=== PATIENT | female | born 1990 | race Caucasian/White ===

== ENCOUNTER 2023-05-29 15:05 | Emergency (ER) | payer MEDICAID ==
[~2023-05-29] VITALS: Ht 162.6 cm; Wt 77.1 kg
[2023-05-29 15:06] VITALS: BP 124/72; PULSE 95; RESP 18; TEMP 97.4; O2SAT 100
[2023-05-29] MEDS: NACL 0.9% 1,000 ML IV ONE (15:37)
[2023-05-29] MEDS: KETOROLAC 30 MG/ML VIAL IVP ONE (16:05)
[2023-05-29] MEDS: ONDANSETRON 4 MG/2 ML VIAL IVP SCH (16:06)
[2023-05-29 16:09] LABS: BASOPHILS % (AUTO) 0.7 % (0.0-2.0); EOSINOPHILS % (AUTO) 0.7 % (0.0-4.0); HEMATOCRIT 34.2 % (36-48); HEMOGLOBIN 11.1 g/dL (12.0-16.0); LYMPHOCYTES # (AUTO) 2.7 K/uL (2.5-16.5); LYMPHOCYTES % (AUTO) 45.8 % (20.5-51.1); MEAN CORPUSCULAR HEMOGLOBIN 25 pg (27-31); MEAN CORPUSCULAR HGB CONC 33 g/dL (33-37); MEAN CORPUSCULAR VOLUME 77.3 fL (80-94); MONOCYTES # (AUTO) 0.3 K/uL (0.8-1.0); MONOCYTES % (AUTO) 5.8 % (1.7-9.3); NEUTROPHILS # (AUTO) 2.8 K/uL (1.8-7.7); PLATELET COUNT (AUTO) 275 K/uL (140-450); RED BLOOD CELL COUNT(AUTO) 4.42 MIL/uL (4.20-5.40); RED CELL DISTRIBUTION WIDTH 16.2 % (11.6-13.7)
[2023-05-29 16:21] LABS: ANION GAP 14.2 (8-16); CALCIUM 9.3 mg/dL (8.5-10.1); CARBON DIOXIDE 25.2 mmol/L (21-32); CREATININE 0.6 mg/dL (0.6-1.3); POTASSIUM 3.4 mmol/L (3.5-5.1)
[2023-05-29 16:23] LABS: BILIRUBIN,URINE NEGATIVE (NEGATIVE); BLOOD, URINE NEGATIVE (NEGATIVE); COLOR,URINE YELLOW (YELLOW); LEUKOCYTE ESTERASE ,URINE 2+ (NEGATIVE); NITRITE, URINE NEGATIVE (NEGATIVE); PROTEIN,URINE NEGATIVE (NEGATIVE); UGLUCOSE NEGATIVE (NEGATIVE); UROBILINOGEN,URINE 0.2 EU/dL (0.2 - 1)
[2023-05-29 16:25] LABS: APPEARANCE,URINE SLIGHTLY CLOUDY (CLEAR)
[2023-05-29 16:27] LABS: RBC,URINE 0 /HPF (0-5)
[2023-05-29 16:28] LABS: BACTERIA,URINE 2+ /HPF (None Seen); MUCUS,URINE None Seen /LPF (None Seen); SQUAMOUS EPITHELIAL CELL,UR 0-3 (FEW) /LPF (0-3 (FEW))
[2023-05-29 16:35] LABS: ALBUMIN 3.7 g/dL (3.4-5.0); BILIRUBIN,DIRECT 0.1 mg/dL (0.0-0.3); TOTAL BILIRUBIN 0.5 mg/dL (0.0-1.0)
[2023-05-29] MEDS: MORPHINE SULFATE 4 MG/ML SYR IVP ONE (17:58)
[2023-05-29 18:09] VITALS: BP 114/60; PULSE 88; RESP 20; TEMP 98; O2SAT 100
[2023-05-29] MEDS ORDERED: CEPH500C16 PO (18:24)
[2023-05-29] MEDS ORDERED: IBUP-2213 PO (18:24)
[2023-05-29] MEDS ORDERED: PYR100 PO (18:24)
[2023-05-29] MEDS ORDERED: ACET-8905 PO (18:24)
[2023-05-29] MEDS ORDERED: ONDA-188 PO (18:28)
== END 2023-05-29 18:45 | disposition home or self-care (01) ==
LOC: MED 15:05
DX: N39.0 Urinary tract infection, site not specified (principal); Z79.899 Other long term (current) drug therapy
CPT/HCPCS: 36415; 74176; 80048; 80076; 81001; 81025; 83690; 85025; 87086; 96361; 96374; 96375; 99285; J1885; J2270; J2405; J7030; 87186